=== PATIENT | male | born 1990 | race Caucasian/White ===

== ENCOUNTER 2021-07-08 08:49 | Emergency (ER) | payer OTHER ==
[~2021-07-08 08:49] MED LIST: BENADRYL25 MG PO; DICLOFENAC GEL TOP; IBU800 MG PO; KEFLEX500 MG PO; NORCO 5-325 TA1 EACH PO; VENTOLIN HFA 66.7 GM INH; VITAMIN C500 M4 PO
[2021-07-08] MEDS ORDERED: IBUPROFEN600 MG PO (09:53)
== END 2021-07-08 10:05 | disposition home or self-care (01) ==
LOC: ER1 08:49
DX: M79.672 Pain in left foot (principal); G89.29 Other chronic pain
CPT/HCPCS: 73630; 99283